=== PATIENT | male | born 1950 | race Caucasian/White ===

== ENCOUNTER 2019-01-09 10:15 | Emergency (ER) | payer MEDICARE, OTHER ==
[~2019-01-09] VITALS: Ht 170.2 cm; Wt 82.0 kg
[~2019-01-09 10:15] MED LIST: DOCU-29; FURO40TA4; GABA300C; OXYC5CAP17 PO; SPIR50TA
[2019-01-09 10:31] VITALS: Ht 170.2 cm; Wt 82.0 kg
[2019-01-09] MEDS ORDERED: SOD CHLORIDE 0.9% 500 ML IV STA (10:42)
[2019-01-09] MEDS ORDERED: ONDANSETRON 4 MG INJ IV STA ×2 (10:57→13:54)
[2019-01-09] MEDS ORDERED: HYDROmorphONE 1 MG/ML SYG IV STA (10:57)
[2019-01-09] MEDS ORDERED: NIFE90TA21 PO (11:31)
[2019-01-09] MEDS ORDERED: GABA300C16 PO (11:32)
[2019-01-09] MEDS ORDERED: URSO250T10 PO (11:33)
[2019-01-09] MEDS ORDERED: DOCU-159 PO (11:33)
[2019-01-09] MEDS ORDERED: PRED5TAB PO (11:34)
[2019-01-09] MEDS ORDERED: MYCO250C3 PO (11:35)
[2019-01-09] MEDS ORDERED: TACR1CAP PO (11:36)
[2019-01-09] MEDS ORDERED: ALBU2.5V3 NEB (11:36)
[2019-01-09] MEDS ORDERED: BENZ-5 PO (11:37)
[2019-01-09] MEDS ORDERED: FLUT1AER INHALATION (11:37)
[2019-01-09] MEDS ORDERED: CALC-678 PO (11:38)
[2019-01-09] MEDS ORDERED: CHOL200073 PO (11:39)
[2019-01-09] MEDS ORDERED: CYAN500T46 PO (11:40)
[2019-01-09] MEDS ORDERED: DOCU-144 PO (11:40)
[2019-01-09] MEDS ORDERED: FLUT16SP17 NASAL (11:41)
[2019-01-09] MEDS ORDERED: FOLI-49 PO (11:42)
[2019-01-09] MEDS ORDERED: PANT40TA4 PO (11:50)
[2019-01-09] MEDS ORDERED: NIFE60TA18 PO (11:50)
[2019-01-09] MEDS ORDERED: TIOT18CA INHALATION (11:51)
[2019-01-09] MEDS ORDERED: TRAM50TA PO (11:52)
[2019-01-09] MEDS ORDERED: NA PHOSPHATE/BIPHOS 133 ML ENEMA PR ONE (12:30)
--- NOTE | 2019-01-09 12:48 | ERD ---
ER Documentation Chief Complaint Chief Complaint BIBRA#39 from home due to abdominal r/t constipation per patient HPI This is a 68-year-old male who is had a liver and kidney transplant. The patient is here because he is having severe constipation with a lot of straining on the toilet the past couple of days. No blood from rectum. He states that his entire abdomen is sore but most of his pain is located on the left side. Denies any cough but does say he has some difficulty urinating. He said he urinated at 6 AM today. He said he does not feel like he needs a catheter to drain his bladder. No vomiting nausea no fever no cough no back pain ROS All systems reviewed and are negative except as per history of present illness. Medications Home Meds Reported Medications Tramadol Hcl* (Ultram*) 50 Mg Tablet, 50 MG PO Q4H PRN for PAIN, TAB TAKE 1 OR 2 TAB Q4H 01/09/19 Tiotropium [place]* (Spiriva*) 18 Mcg Cap.w.dev, 1 CAP INHALATION DAILY, #30 CAP 01/09/19 Pantoprazole* (Pantoprazole*) 40 Mg Tablet.dr, 40 MG PO AC BREAKFAST, TAB 01/09/19 Nifedipine* (Nifedipine ER*) 60 Mg Tablet.sa, 60 MG PO QPM, TAB.SA 01/09/19 Folic Acid* (Folic Acid*) 1 Mg Tablet, 1 MG PO DAILY, TAB 01/09/19 Fluticasone Propionate* (Fluticasone Propionate* Nasal) 50 Mcg/[place] - 16 Gm S pray.susp, 2 SPRAYS NASAL DAILY, #1 BOTTLE TO EACH NOSTRIL 01/09/19 Docusate Sodium* (Colace*) 100 Mg Capsule, 100 MG PO BID, #60 CAP 01/09/19 Cyanocobalamin* (Vitamin B12*) 500 Mcg Tab, 500 MCG PO DAILY, TAB 01/09/19 Cholecalciferol (Vitamin D3) (VITAMIN D-3) 2,000 Unit Capsule, 2000 UNIT PO DAILY, CAP 01/09/19 Calcium Carbonate (CELESTE-GEST) Unknown Strength Tab.chew, 500 MG PO TID, TAB.CHEW 01/09/19 Fluticasone-Vilanterol (Breo Ellipta Inhaler) 100-25 Mcg/Actuation Aer.pow.ba, 1 PUFF INHALATION DAILY, #1 INHALER 01/09/19 Benzonatate* (Benzonatate*) 100 Mg Capsule, 100 MG PO TID PRN for COUGH, CAP 01/09/19 Albuterol Sulfate* (Albuterol Sulfate* Neb) 0.083%-3 Ml Neb, 2.5 MG NEB Q4H PRN for WHEEZING AND SOB, #30 VIAL 01/09/19 Tacrolimus* (Tacrolimus*) 1 Mg Capsule, 3 MG PO Q12, CAP 01/09/19 Mycophenolate Mofetil* (Cellcept*) 250 Mg Capsule, 500 MG PO BID, CAP 01/09/19 Prednisone* (Prednisone*) 5 Mg Tab, 5 MG PO DAILY, TAB 01/09/19 Docusate Sodium* (Docusate Sodium*) 100 Mg Capsule, 100 MG PO BID, #60 CAP 01/09/19 Ursodiol* (Ursodiol*) 250 Mg Tablet, 250 MG PO TID, TAB 01/09/19 Gabapentin* (Gabapentin*) 300 Mg Capsule, 300 MG PO TID, #90 CAP 01/09/19 Nifedipine* (Adalat CC*) 90 Mg Tablet.sa, 90 MG PO QAM, #30 TAB.SA 01/09/19 Discontinued Reported Medications Oxycodone Hcl* (IR) (Oxycodone Hcl*) 5 Mg Capsule, PO PRN EVERY 6 HRS 10/10/13 Gabapentin* (Neurontin*) 300 Mg Capsule, HS 11/25/12 Docusate Sodium (Dss) 100 Mg Capsule, BID 11/25/12 Spironolactone* (Aldactone*) 50 Mg Tablet, DAILY 11/25/12 Furosemide (Lasix) 40 Mg Tab, BID 11/25/12 Allergies Allergies: Coded Allergies: No Known Allergy (Unverified , 01/09/19) PMhx/Soc History of Surgery: Yes (UMBILICAL HERNIA, LIVER AND KIDNEY TRANSPLANT) Anesthesia Reaction: No Hx Neurological Disorder: No Hx Respiratory Disorders: Yes (ASTHMA) Hx Cardiac Disorders: Yes (HTN) Hx Psychiatric Problems: No Hx Miscellaneous Medical Probl: Yes (CIRRHOSIS) Hx Alcohol Use: No (used to drink alcohol) Hx Substance Use: No Hx Tobacco Use: No Smoking Status: Never smoker FmHx Family History: No coronary disease Physical Exam Vitals Vital Signs Date Temp Pulse Resp B/P (MAP) Pulse Ox O2 O2 Flow FiO2 Time Delivery Rate 01/09/19 97.8 91 20 151/104 95 10:31 (120) Physical Exam Const: Well-developed, well-nourished Head: Atraumatic, normocephalic Eyes: Normal Conjunctiva, PERRLA, EOMI, normal sclera, no nystagmus ENT: Normal External Ears, Nose and Mouth, moist mucus membranes. Neck: Full range of motion. No meningismus, no lymphadenopathy. Resp: Clear to auscultation bilaterally, no wheezing, rhonchi, rales Cardio: Regular rate and rhythm, no murmurs, S1 S2 present Abd: Soft, mild diffuse tenderness with moderate left lower quadrant tenderness, non distended. Normal bowel sounds, no guarding or rebound, no pulsitile abdominal masses or bruits Skin: No petechiae or rashes, no ecchymosis , no maculopapular rash Back: No midline or flank tenderness Ext: No cyanosis, or edema, FROM x 4, normal inspection, neurovascularly intact x 4 Neur: Awake and alert, STR 5/5 x 4, sensation intact x 4, no focal findings, cerebellum intact Psych: Normal Mood and Affect Result Diagram: 01/09/19 1053 01/09/19 1135 Results 24 hrs Laboratory Tests Test 01/09/19 10:53 01/09/19 11:35 White Blood Count 20.1 10^3/ul Red Blood Count 4.12 10^6/ul Hemoglobin 13.9 g/dl Hematocrit 40.2 % Mean Corpuscular Volume 97.6 fl Mean Corpuscular Hemoglobin 33.7 pg Mean Corpuscular Hemoglobin Concent 34.6 g/dl Red Cell Distribution Width 12.3 % Platelet Count 192 10^3/UL Mean Platelet Volume 10.7 fl Immature Granulocytes % 0.700 % Neutrophils % 84.1 % Lymphocytes % 9.3 % Monocytes % 5.5 % Eosinophils % 0.1 % Basophils % 0.3 % Nucleated Red Blood Cells % 0.0 /100WBC Immature Granulocytes # 0.150 10^3/ul Neutrophils # 16.8 10^3/ul Lymphocytes # 1.9 10^3/ul Monocytes # 1.1 10^3/ul Eosinophils # 0.0 10^3/ul Basophils # 0.1 10^3/ul Nucleated Red Blood Cells # 0.0 10^3/ul Urine Color YELLOW Urine Clarity CLEAR Urine pH 6.0 Urine Specific [place] 1.013 Urine Ketones NEGATIVE mg/dL Urine Nitrite NEGATIVE mg/dL Urine Bilirubin NEGATIVE mg/dL Urine Urobilinogen NEGATIVE mg/dL Urine Leukocyte Esterase NEGATIVE Jeremi/ul Urine Hemoglobin NEGATIVE mg/dL Urine Glucose NEGATIVE mg/dL Urine Total Protein NEGATIVE mg/dl Sodium Level 140 mmol/L Potassium Level 3.7 mmol/L Chloride Level 104 mmol/L Carbon Dioxide Level 22 mmol/L Anion Gap 14 Blood Urea Nitrogen 19 mg/dl Creatinine 1.22 mg/dl Est Glomerular Filtrat Rate mL/min 59 mL/min Glucose Level 141 mg/dl Calcium Level 9.4 mg/dl Total Bilirubin 0.6 mg/dl Direct Bilirubin 0.00 mg/dl Indirect Bilirubin 0.6 mg/dl Aspartate Amino Transf (AST/SGOT) 19 IU/L Alanine Aminotransferase (ALT/SGPT) 18 IU/L Alkaline Phosphatase 109 IU/L Troponin I 0.031 ng/ml Total Protein 7.5 g/dl Albumin 4.3 g/dl Globulin 3.20 g/dl Albumin/Globulin Ratio 1.34 Lipase < 10 U/L Current Medications Medications Dose Sig/Hali Start Time Status Last (Trade) Ordered Route PRN Stop Time Admin Dose Reason Admin Sodium 500 ml @ Q1H STAT 01/09/19 DC 01/09/19 Chloride 500 mls/hr IV 10:42 11:11 01/09/19 11:41 1 mg ONCE STAT 01/09/19 DC 01/09/19 Hydromorphone IV 10:57 11:12 HCl 01/09/19 10:58 (Dilaudid) Ondansetron 4 mg ONCE STAT 01/09/19 DC 01/09/19 HCl (Zofran IV 10:57 11:11 Inj) 01/09/19 10:58 Sodium 133 ml ONCE ONCE 01/09/19 DC 01/09/19 Biphosphate/ MO 12:30 12:17 Sodium 01/09/19 12:31 Phosphate (Fleet Enema) Morphine 4 mg ONCE STAT 01/09/19 UNV Sulfate IV 13:54 (morphine) 01/09/19 13:55 Ondansetron 4 mg ONCE STAT 01/09/19 UNV HCl (Zofran IV 13:54 Inj) 01/09/19 13:55 Procedures/MDM [facility] [address] [address] Radiology Main Line: [phone] DIAGNOSTIC IMAGING REPORT Patient: LU VAUGHN : 1950 Age: 68 Sex: M MR #: [id number] DOS: 01/09/19 1047 Ordering MD: SUHA BRADEN DO Location: E/R Room/Bed: PROCEDURE: CT Abdomen and pelvis without contrast. CLINICAL INDICATION: Abdominal pain TECHNIQUE: CT scan of the abdomen and pelvis without contrast was performed on a multidetector high-resolution CT scan. . Coronal and sagittal reformatted images were obtained from the axial source images. Standard CT scan of the abdomen pelvis without contrast protocols were performed. The total exam CTDI equals 16.46 mGy and the total exam DLP equals 1006 0.11 mGy-cm. One or more of the following dose reduction techniques were used: - Automated exposure control. - Adjustment of the mA and/or kV according to patient size. Use of iterative reconstruction technique. Dicom images are available COMPARISON: None. FINDINGS: Atrophic [place] kidneys without hydronephrosis renal calcified calculi or intra renal masses. Left lower quadrant transplant kidney with trace perirenal fluid. No transplant renal mass calculus or hydronephrosis. Urinary bladder unremarkable. Prostate unremarkable. Moderate stool burden throughout the colon most pronounced involving the rectum and distal sigmoid colon consistent with constipation. Remainder the colon is unremarkable. Stomach, small bowel and appendix are unremarkable. No evidence of intra-abdominal free air, free fluid, abscesses or lymphadenopathy. Biliary stent in place involving the common hepatic and common bile duct and extending into the second portion of the duodenum. Intrahepatic pneumobilia. No evidence of biliary ductal dilation. Absent gallbladder consistent with cholecystectomy. Liver spleen and adrenal glands are unremarkable. Fatty atrophic pancreas without focal lesion. Elongated plate-like increased density along the inferior right lobe of the liver likely surgical. Coronary artery disease. Atherosclerosis of the aorta. No aortic aneurysm. Small fat containing left inguinal hernia without herniated bowel or strangulation. Abdominal pelvic wall otherwise unremarkable. Mild chronic basilar interstitial lung disease and subsegmental atelectasis. Degenerative changes lower thoracic and lumbar spine without acute osseous findings are osteoblastic/osteolytic lesions. IMPRESSION: 1. Atrophic [place] kidneys without calcified calculi or obstructive uropathy. 2. Left lower quadrant transplant kidney without hydronephrosis mass or calculus. Trace cirstian renal fluid. 3. Moderate stool burden throughout the colon especially in the rectum consist ent with constipation. No bowel obstruction. 4. Biliary stent extending into the second portion the duodenum. Pneumobilia without biliary ductal dilation. 5. Absent gallbladder consistent with cholecystectomy. 6. Small fat containing left inguinal hernia without herniated bowel or strangulation. RPTAT:AAJJ Physician Enoc Date Time Electronically viewed and signed by Bobby Grady Physician on 01/09/2019 11:35 BM/ CC: SUHA BRADEN DO [id number] Patient has elevated white blood count but he is on prednisone daily. This is likely due to that. Patient's CAT scan shows some moderate stool. The patient was given an enema and he had a large bowel movement and he said that his pain is slightly decreased but close to the same. He says the pain is crampy and intermittent. The patient does not have any acute pathology going on his abdomen he may have some type of viral illness or bad food exposure. I discussed with him warning signs to return soon however I will discharge him with a clear liquid diet and pain medication and observe at home. He will return if he gets any worse he states Departure Diagnosis: Primary Impression: Abdominal pain Abdominal location: generalized Qualified Codes: R10.84 - Generalized abdominal pain Additional Impression: Constipation Constipation type: unspecified constipation type Qualified Codes: K59.00 - Constipation, unspecified Condition: Stable SUHA BRADEN DO January 09, 2019 12:48
[2019-01-09] MEDS ORDERED: morphine 4 MG/ML VIAL IV STA (13:54)
[2019-01-09] MEDS ORDERED: HYDR-3980 PO (14:02)
[2019-01-09] MEDS ORDERED: METR500T PO (14:03)
[2019-01-09] MEDS ORDERED: POLY17PO6 PO (14:03)
[2019-01-09 14:32] VITALS: BP 151/86; PULSE 89; RESP 18
== END 2019-01-09 14:44 | disposition home or self-care (01) ==
LOC: E/R 10:15
DX: R10.84 Generalized abdominal pain (principal); I10 Essential (primary) hypertension; J45.909 Unspecified asthma, uncomplicated; K59.00 Constipation, unspecified
CPT/HCPCS: 36415; 74176; 80053; 81003; 83690; 84484; 85025; 96374; 96375; 96376; 99285; J1170; J2270; J2405; J7040

== ENCOUNTER 2019-02-27 08:52 | Emergency (ER) | payer MEDICARE, OTHER ==
[~2019-02-27] VITALS: Ht 167.6 cm; Wt 79.5 kg
[~2019-02-27 08:52] MED LIST changes: +ALBU2.5V3 NEB; +BENZ-5 PO; +CALC-678 PO; +CHOL200073 PO; +CYAN500T46 PO; +DOCU-144 PO; +DOCU-159 PO; -DOCU-29; +FLUT16SP17 NASAL; +FLUT1AER INHALATION; +FOLI-49 PO; -FURO40TA4; -GABA300C; +GABA300C16 PO; +HYDR-3980 PO; +METR500T PO; +MYCO250C3 PO; +NIFE60TA18 PO; +NIFE90TA21 PO; -OXYC5CAP17 PO; +PANT40TA4 PO; +POLY17PO6 PO; +PRED5TAB PO; -SPIR50TA; +TACR1CAP PO; +TIOT18CA INHALATION; +TRAM50TA PO; +URSO250T10 PO
[2019-02-27] MEDS ORDERED: DEXAMETHASONE 10 MG/ML 1 ML INJ IV STA (08:59)
[2019-02-27] MEDS ORDERED: ALBUTEROL 0.5% (NEB) 2.5 MG/0.5 ML AMP INH STA (08:59)
[2019-02-27] MEDS ORDERED: SOD CHLORIDE 0.9% 1,000 ML IV STA (08:59)
[2019-02-27] MEDS ORDERED: ALBUTEROL 0.083% (NEB) 2.5 MG/3 ML AMP HHN STA (08:59)
[2019-02-27] MEDS ORDERED: IPRATROPIUM (NEB) 0.5 MG/2.5 ML AMP INH STA (08:59)
[2019-02-27] MEDS ORDERED: IPRATROPIUM (NEB) 0.5 MG/2.5 ML AMP HHN ONE (09:00)
[2019-02-27] MEDS ORDERED: NEOMYC/POLYMYX/BACIT 0.9 GM OINT TOP ONE (09:00)
[2019-02-27 09:06] VITALS: Ht 167.6 cm; Wt 79.5 kg
[2019-02-27] MEDS ORDERED: morphine 4 MG/ML VIAL IV STA (09:07)
[2019-02-27] MEDS ORDERED: ONDANSETRON 4 MG INJ IV STA (09:07)
[2019-02-27] MEDS ORDERED: NEOMYC/POLYMYX/BACIT 30 GM OINT TOP ONE (09:30)
[2019-02-27 09:38] VITALS: BP 161/86; PULSE 110; RESP 24
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
[2019-02-27] MEDS ORDERED: KETOROLAC 15 MG INJ IV STA (10:13)
[2019-02-27] MEDS ORDERED: NEOM28OI31 TP (10:21)
[2019-02-27] MEDS ORDERED: ONDA4TAB14 PO (10:21)
[2019-02-27] MEDS ORDERED: ALBU18HF INHALATION (10:21)
[2019-02-27] MEDS ORDERED: IBUP800T48 PO (10:21)
[2019-02-27] MEDS ORDERED: HYDR-3980 PO (10:21)
[2019-02-27] MEDS ORDERED: HYDROCODONE/APAP (10/325) TAB PO ONE (10:30)
[2019-02-27] MEDS ORDERED: DICY10CA40 PO (10:42)
== END 2019-02-27 11:46 | disposition home or self-care (01) ==
LOC: E/R 08:52
DX: T21.22XA Burn of second degree of abdominal wall, initial encounter (principal); T25.221A Burn of second degree of right foot, initial encounter; I10 Essential (primary) hypertension; J68.9 Unspecified respiratory condition due to chemicals, gases, fumes and vapors; T65.891A Toxic effect of other specified substances, accidental (unintentional), initial encounter; R06.02 Shortness of breath; X08.8XXA Exposure to other specified smoke, fire and flames, initial encounter; W40.9XXA Explosion of unspecified explosive materials, initial encounter; Y92.9 Unspecified place or not applicable; Z94.0 Kidney transplant status
CPT/HCPCS: 16000; 36415; 71045; 80048; 82803; 85025; 94644; 96374; 96375; 99284; J1100; J1885; J2270; J2405; J7030